=== PATIENT | female | born 1955 | race Caucasian/White ===

== ENCOUNTER 2016-05-06 13:23 | Emergency (ER) | payer MEDICARE, OTHER ==
[~2016-05-06] VITALS: Ht 162.6 cm; Wt 90.9 kg
[~2016-05-06 13:23] MED LIST: AMB10 PO; BANO TOP; CA C1TAB88 PO; CITRACEL PO; CMBV14.7IN IH; FEXO180T PO; LEVO125T50 PO; LOM PO; NEX40C PO; OXC10TCR PO; OXYC-176 PO; RANI-5 PO; SIN10 PO; TIZA4TABA PO; TOPR25T PO; TRIA TP; TRIA1CAP PO; [UNRECOGNIZED DRUG - CODE] PO
[2016-05-06 13:26] VITALS: BP 168/90; PULSE 96; RESP 28; O2SAT 100
[2016-05-06] MEDS ORDERED: Ketorolac 30 mg/mL 2 mL Inj ONE (14:01)
--- NOTE | 2016-05-06 14:10 | ED.REPORT ---
HPI-Abd Pain F 40 and Over Date of Service May 06, 2016 ED Provider: Timothy Tam MD 60 year old female presents to the ER accompanied by her son complaining of severe right flank pain onset in the middle of the night last night, awakening her from sleep. At onset patient treated with heating pad and returned to bed. Upon awakening at 06:00, she noted markedly worsening pain. She has since developed nausea, and vomiting. Associated symptoms include diarrhea onset yesterday, an episode of dark-colored urine yesterday, and rhinorrhea. Yesterday she used Zicam to treat cold symptoms. Patient denies history of kidney stones or similar, hematochezia, chest pain, SOB, and sore throat. Nursing Notes Stated Complaint: POSS KIDNEY PAIN Chief Complaint: Female Abdominal Pain Nursing Notes Reviewed: Yes Allergies: Coded Allergies: Calcitonin,[place],Synthetic (Verified Allergy, Unknown, 05/06/16) Cephalexin Monohydrate (Verified Allergy, Unknown, 05/06/16) NSAIDS (Non-Steroidal Anti-Inflamma (Verified Allergy, Unknown, 05/06/16) Sulfa (Sulfonamide Antibiotics) (Verified Allergy, Unknown, 05/06/16) TAPE (Verified Allergy, Unknown, 05/06/16) alendronate sodium (Verified Allergy, Unknown, 05/06/16) amoxicillin (Verified Allergy, Unknown, 05/06/16) ciprofloxacin (Verified Allergy, Unknown, 05/06/16) dicyclomine (Verified Allergy, Unknown, 05/06/16) erythromycin base (Verified Allergy, Unknown, 05/06/16) gatifloxacin (Verified Allergy, Unknown, 05/06/16) methadone (Verified Allergy, Unknown, 05/06/16) pseudoephedrine (Verified Allergy, Unknown, 05/06/16) raloxifene (Verified Allergy, Unknown, 05/06/16) valdecoxib (Verified Allergy, Unknown, 11/08/13) Uncoded Allergies: DONATAL (Allergy, Unknown, 11/08/13) LACTOSE INTOLERANT, CORN, PINAPPLE, NO RAW VEGTABLES (Allergy, Unknown, 07/01) METALS (Allergy, Unknown, 11/08/13) MULTIPLE SEE CHART PER OR (Allergy, Unknown, 07/02/03) Scheduled ([Citracel]) 2 PO DAILY Albut/Ipratropium-Expunged Drug, Do Not Renew (Combivent-Expunged Drug, Do Not Renew!) 1 Puff Inhaler 2 PUFFS IH QID 2 PUFFS Ca Carbonate/Vitamin D3/Vit K (Viactiv Soft Chew Tablet) 1 Each Tab.chew 500 MG PO DAILY Diphenoxylate/Atr-Expunged, Do Not Renew! (Diphenoxylate/Atr-Expunged, Do Not Renew!) 2.5 Mg Tablet 2.5 MG PO PRN Esomeprazole-Expunged Drug, Do Not Renew! (Esomeprazole-Expunged Drug, Do Not Renew!) 40 Mg Capsule.dr 40 MG PO BID Non-Formulary->Pantoprazole 40 MG Therapeutic Sub Fexofenadine-Expunged Drug, Do Not Renew! (Fexofenadine-Expunged Drug, Do Not Renew!) 180 Mg Tablet 180 MG PO PRN Levothyroxine (Levoxyl) 112 Mcg Tablet 112 MCG PO DAILY Metoprolol Suc-Expunged Drug, Do Not Renew! (Metoprolol Suc-Expunged Drug, Do Not Renew!) 25 Mg Tber 25 MG PO DAILY Minocycline Hcl-Expunged Drug, Do Not Renew! (Minocycline Hcl-Expunged Drug, Do Not Renew!) 135 Mg Tab.sr.24h 100 MG PO DAILY Montelukast-Expunged Drug, Do Not Renew! (Singulair-Expunged Drug, Do Not Renew! ) 10 Mg Tablet 10 MG PO HS For Allergy Management Mupirocin-Expunged Drug, Do Not Renew! (Bactroban-Expunged Drug, Do Not Renew!) 4 Applic/Gm Oint TOP PRN APPLY TO AFFECTED AREA Oxycodone/APAP-Expunged Drug, Do Not Renew! (Percocet 5/325-Expunged Drug, Do Not Renew!) 1 Each Tablet 1-2 TAB PO Q4HP Ranitidine Hcl-Expunged Drug, Do Not Renew! (Acid Control-Expunged Drug, Do Not Renew!) 150 Mg Tablet 300 MG PO BID Tizanidine-Expunged Drug, Do Not Renew! (Tizanidine-Expunged Drug, Do Not Renew! ) 4 Mg Tablet 4-8 MG PO Q6-8H Triamcinolone [place]-Expunged Drug, Do Not Renew (Triamcinolone [place]-Expunged Drug, Do Not Renew) 454 Gm Cr TP PRN Triamterene/HCTZ-Expunged Drug, Do Not Renew! (Triamterene/HCTZ 37.5/25-Expunged ,Do Not Renw) 1 Cap Capsule 1 CAP PO DAILY Miscellaneous Medications Zolpidem-Expunged Drug, Do Not Renew! (Zolpidem-Expunged Drug, Do Not Renew!) 10 Mg Tablet 10 MG PO oxyCODONE-Expunged, Do Not Renew! (OxyCONTIN-Expunged, Do Not Renew!) 10 Mg Tab.sr.12h 10 MG PO TAKE 10 MG BY MOUTH 6 TIMES DAILY General Time Seen by MD: 13:57 Chief Complaint Flank pain right Hx Obtained From: Patient, Son Arrived By: Ambulance Sudden in Onset?: Yes Onset Occurred: Yesterday Symptom Duration: Since onset Location: : Flank right Quality: Painful, Sharp Severity: Current: Moderate Severity: Maximum: Severe Associated with: Reports: Diarrhea, Fever, Nausea, Vomiting, Denies: Chest pain, Dysuria, Hematochezia, Hematuria Pertinent Negative: Pt denies other symptoms Similar Sx Previous: No Past Medical History Past Medical History Reports: Asthma Reports: Thyroid disease (Hypothyroidism) Smoking History Unknown if Ever Smoker Social History Other Social History: Good social support Review of Systems Constitutional: Reports: Fever (Subjective) Respiratory: Denies: Non-productive cough, Shortness of breath Cardiovascular: Denies: Chest pain GI: Reports: Diarrhea, Nausea, Vomiting, Denies: Abdominal pain, Hematemesis, Hematochezia Female: Reports: Flank pain (Right), Denies: Dysuria, Hematuria Musculoskeletal: Reports: Back pain Complete sys rev & neg: except as marked. Allergy / Immune: Reports: Rhinorrhea Physical Exam Vital Signs Vital Signs (First) Date Time Temp Pulse Resp B/P Pulse Ox O2 Delivery O2 Flow Rate FiO2 05/06/16 13:26 37.4 96 28 168/90 100 Room Air Initial VS: Reviewed Head / Eyes: Atraumatic, Normocephalic Neck: Supple, Non-tender, Full range of motion Extremities: Vascular intact, Neuro intact, No swelling, No tenderness Skin: Warm, Dry, No cyanosis Neurologic: Alert, Oriented, Nonfocal General/Constitutional: Awake, Alert, Well developed, Well nourished Appearance / Presentation: Positive: In pain, Uncomfortable Respiratory / Chest: Breath sounds NL, Breath sounds = bilat, No respiratory distress, No rales, No rhonchi, No wheezing, No stridor Cardiovascular: Heart rate NL, Regular rhythm, Heart sounds NL, Peripheral circulation NL Abdomen: Soft, Non-tender, No guarding, No rebound, No distention Back: Full range of motion, No midline vertebral tend Right CVA tenderness. Interpretation & Diagnostics Lab Results Interpretation Result Diagram: 05/06/16 1424 05/06/16 1424 Test 05/06/16 14:17 05/06/16 14:24 Urine Color Yellow (YELLOW) Urine Appearance Clear (CLEAR,HAZY) Urine pH 7.5 (5.0-8.0) Urine Specific [place] 1.015 (1.003-1.035) Urine Protein Negativemg/dL (NEG,TRACE) Urine Glucose (UA) Negativemg/dL (NEGATIVE) Urine Ketones Negativemg/dL (NEGATIVE) Urine Occult Blood Negative (NEGATIVE) Urine Nitrite Negative (NEGATIVE) Urine Bilirubin Negative (NEGATIVE) Urine Urobilinogen Normalmg/dL (NORMAL) Urine Leukocyte Esterase Negative (NEGATIVE) Urine RBC 0-2/hpf (0-2) Urine WBC 0-5/hpf (0-5) Urine Epithelial Cells Occasional/hpf (NONE-MOD) Urine Crystals None seen (NONE SEEN) Urine Bacteria None/hpf (NONE-FEW) Urine Hyaline Casts None/lpf (NONE) Urine Granular Casts None seen (NONE SEEN) Urine Waxy Casts None seen (NONE SEEN) Urine Red Blood Cell Casts None seen (NONE SEEN) Urine White Blood Cell Casts None seen (NONE SEEN) Urine Mucus None seen (None Seen) Urine Trichomonas None seen (NONE SEEN) Urine Yeast None (NONE SEEN) Urinalysis Comment None Urine Culture Reflexed Not indicated White Blood Count 10.5th/mm3 (3.8-10.1) Red Blood Count 4.79mil/mm3 (3.90-5.20) Hemoglobin 14.3g/dL (12.0-15.6) Hematocrit 42.9% (35.0-46.0) Mean Corpuscular Volume 89.6fL (81-100) Mean Corpuscular Hemoglobin 29.9pg (27.0-35.0) Mean Corpuscular Hemoglobin Concent 33.3% (32.0-37.0) Red Cell Distribution Width 13.8% (12.3-15.4) Platelet Count 261bil/L (150-400) Neutrophils (%) (Auto) 86.1% (40-74) Lymphocytes (%) (Auto) 6.5% (14-46) Monocytes (%) (Auto) 6.7% (4-12) Eosinophils (%) (Auto) 0.4% (0-5) Basophils (%) (Auto) 0.1% (0-3) Sodium Level 139mEq/L (134-144) Potassium Level 3.6mEq/L (3.5-5.2) Chloride Level 99mEq/L (97-108) Carbon Dioxide Level 20mmol/L (18-29) Blood Urea Nitrogen 16mg/dL (6-24) Creatinine 0.58mg/dL (0.57-1.00) Estimat Glomerular Filtration Rate 152mL/min (>59) Glucose Level 102mg/dL (60-99) Calcium Level 8.9mg/dL (8.5-10.1) Magnesium Level 2.2mg/dL (1.6-2.6) Total Bilirubin 1.5mg/dL (0.0-1.2) Aspartate Amino Transf (AST/SGOT) 443U/L (0-50) Alanine Aminotransferase (ALT/SGPT) 451U/L (0-32) Alkaline Phosphatase 173U/L (25-165) Total Protein 7.0g/dL (6.4-8.4) Albumin 4.5g/dL (3.4-5.0) Lipase 32U/L (13-60) ECG Interpretation ECG Interpretation: Sinus rhythm, rate [address] T changes Time: 14:35 Interpreted by: ED physician CT Abd / Pelvis Interpretation IMPRESSION: 1. No evidence of urinary tract calcification, nor extraction. 2. Appendix not seen. No evidence of appendicitis. Dictated by: Michael Yeboah M.D. on 05/06/2016 at 15:03 Approved by: Michael Yeboah M.D. on 05/06/2016 at 15:05 Study type: Abdominal CT no contrast Interpretation / Wet Read by: Interpret - Radiologist Re-Eval/Medical Decision Med Decision/Clinical Course 60-year-old female presenting with right flank pain since last night. She has no history of kidney stones. No fevers no urinary symptoms. Her urine is negative for infection or blood. LFTs are elevated. Bili 1.5. CT KUB no acute pathology. Right upper quadrant ultrasound is pending. Patient be signed out to Dr. Walters pending US. Source of Hx: Old records Discharge & Departure Shift Change Sign-Out Patient Care Transferred: Yes Discussed Complaint(s): Yes Imaging Studies: Imaging discussed Primary Impression: Right upper quadrant abdominal pain Discharge Condition All VS Reviewed: Yes Referrals: Rafaela Meade MD (PCP) Care Transferred to: Dr. Walters Care Transferred at: 15:51 Scribe Attestation Portions of this note were transcribed by Yaakov Roy. I, Dr. Tam, personally performed the history, physical exam and medical decision-making; I reviewed and confirmed the accuracy of the information in the transcribed note. Signed by: Carol Ann Schultz, 05/06/2016 - 15:51 copies to: Rafaela Meade MD, Ben M MD May 06, 2016 14:10 YAAKOV ROY May 06, 2016 14:17
[2016-05-06] MEDS ORDERED: LEVO112T23 PO (14:16)
[2016-05-06] MEDS ORDERED: 0.9% Sodium Chloride 1,000 ML IV ONE (14:17)
[2016-05-06 14:30] LABS: BASOPHILS % (AUTO) 0.1 % (0-3); EOSINOPHILS % (AUTO) 0.4 % (0-5); MONOCYTES % (AUTO) 6.7 % (4-12); Mean Corpuscular Hemoglobin 29.9 pg (27.0-35.0); Mean Corpuscular Volume 89.6 fL (81-100); NEUTROPHILS % (AUTO) 86.1 % (40-74); Platelet Count 261 bil/L (150-400)
[2016-05-06] MEDS: Ondansetron 2 mg/mL 2 mL Inj IVPUSH PRN ×2 (14:42→15:24)
[2016-05-06 14:50] LABS: APPEARANCE,URINE CLEAR (CLEAR,HAZY); COLOR,URINE YELLOW (YELLOW); OCCULT BLOOD,URINE NEGATIVE (NEGATIVE); PH,URINE 7.5 (5.0-8.0); UROBILINOGEN,URINE NORMAL (NORMAL)
[2016-05-06 14:54] LABS: Magnesium 2.2 mg/dL (1.6-2.6)
--- NOTE | 2016-05-06 15:06 | DRSVH ---
PROCEDURE: CT KUB ([id number]) INDICATIONS: R flank pain TECHNIQUE: Noncontrast 5 mm thick sections acquired from the diaphragms to the symphysis. 5 mm thick coronal an d sagittal reformats were then performed. For radiation dose reduction, the following was used: aut omated exposure control, adjustment of mA and/or kV according to patient size. COMPARISON: [facility], CT, CHEST ANGIO-PE, 03/29/2013, 23:28. FINDINGS: Image quality: Excellent. Lung bases: Bilateral anterior lung base scarring is present, as before. Heart size is normal. Urinary system: Both kidneys are normal in size. No kidney stones. No hydronephrosis or perinephri c fat stranding. Both ureters appear non-dilated throughout their expected courses. Bladder wall th ickness is normal; no calcified bladder stones. Other solid organs: Liver and spleen are normal in size. No change in 6 mm low-density focus within the lateral segment left hepatic lobe superiorly. Gallbladder is within normal limits on noncontrast imaging. Pancreas is normal in contours. No adrenal nodules. Peritoneum and bowel: Unenhanced bowel loops demonstrate normal wall thickness and caliber. No free fluid or air. Appendix not seen. Nodes and vessels: No retroperitoneal or mesenteric adenopathy by size criteria. Aorta and inferior vena cava are normal in caliber. Abdominal wall: No ventral hernias. Pelvis: No free pelvic fluid. No inguinal hernias or adenopathy. Bones: No suspicious bony lesions. No vertebral body compression fractures. IMPRESSION: 1. No evidence of urinary tract calcification, nor extraction. 2. Appendix not seen. No evidence of appendicitis. Dictated by: Michael Yeboah M.D. on 05/06/2016 at 15:03 Approved by: Michael Yeboah M.D. on 05/06/2016 at 15:05
--- NOTE | 2016-05-06 16:55 | DRSVH ---
PROCEDURE: US ABDOMEN, LIMITED ([id number]) INDICATIONS: RUQ pain gallbladder TECHNIQUE: Real-time focused scanning was performed of the abdomen, with image documentation. COMPARISON: None. FINDINGS: Multiple gallstones present and no evidence of cholecystitis is seen. No biliary dilatatio n. IMPRESSION: Cholelithiasis. Dictated by: Luís Buenrostro RRHeike Interpreted: Gilda Stiles MD on 05/06/2016 at 16:54 Transcribed by: BIRGIT on 05/06/2016 at 16:54 Approved by: Gilda Stiles MD, PhD on 05/06/2016 at 17:03
[2016-05-06 17:17] VITALS: BP 143/88; PULSE 87; RESP 16; O2SAT 100
[2016-05-06 18:07] VITALS: BP 138/89; PULSE 85; O2SAT 99
[2016-05-06] MEDS ORDERED: HYDR-4003 PO (18:14)
[2016-05-07] MEDS ORDERED: ZOLP10TA5 PO (17:37)
[2016-05-07] MEDS ORDERED: OXYC-466 PO (17:37)
[2016-05-07] MEDS ORDERED: METO25TA6 PO ×2 (17:37)
[2016-05-07] MEDS ORDERED: ESOM40CA41 PO (17:37)
[2016-05-07] MEDS ORDERED: OXYC10TA69 PO (17:37)
[2016-05-07] MEDS ORDERED: ALBU0.63 INHALATION (17:37)
[2016-05-07] MEDS ORDERED: HYDR25TA4 PO (17:37)
[2016-05-07] MEDS ORDERED: RANI300T4 PO (17:37)
[2016-05-07] MEDS ORDERED: DIPH1TAB PO (17:37)
[2016-05-07] MEDS ORDERED: TRIA1CAP5 PO (17:37)
[2016-05-07] MEDS ORDERED: CALC-682 PO (17:37)
[2016-05-07] MEDS ORDERED: MINO100C3 PO (17:37)
[2016-05-07] MEDS ORDERED: LEVO112T23 PO (17:37)
[2016-05-07] MEDS ORDERED: TRIIODO-L-THYRONINE PO (17:37)
[2016-05-07] MEDS ORDERED: FEXO180T85 PO (17:37)
[2016-05-07] MEDS ORDERED: TIZA4TAB4 PO (17:37)
[2016-05-07] MEDS ORDERED: MONT10TA20 PO (17:37)
== END 2016-05-06 18:11 ==
LOC: SED 13:23
DX: K80.00 Calculus of gallbladder with acute cholecystitis without obstruction (principal); I10 Essential (primary) hypertension; J45.909 Unspecified asthma, uncomplicated; E03.9 Hypothyroidism, unspecified; J44.9 Chronic obstructive pulmonary disease, unspecified; Z88.8 Allergy status to other drugs, medicaments and biological substances; Z88.1 Allergy status to other antibiotic agents; Z88.6 Allergy status to analgesic agent; Z88.2 Allergy status to sulfonamides; Z88.0 Allergy status to penicillin; Z88.5 Allergy status to narcotic agent
CPT/HCPCS: 36415; 74176; 76705; 80053; 81000; 83690; 83735; 85025; 93005; 96361; 96372; 96374; 96375; 96376; 99285; J1885; J2270; J2405; J7030

== ENCOUNTER 2016-05-07 16:56 | Day surgery (SDC) | payer MEDICARE, OTHER ==
[2016-05-07] VITALS (11 sets, daily range): BP systolic 134–179; BP diastolic 75–99; PULSE 82–128; RESP 13–24; O2SAT 95–100
[~2016-05-07] VITALS: Ht 162.6 cm; Wt 93.0 kg
[~2016-05-07 16:56] MED LIST changes: +HYDR-4003 PO; +LEVO112T23 PO; -LEVO125T50 PO
[2016-05-07] MEDS ORDERED: Neostigmine 1 mg/mL 10 mL Inj ONE (16:57)
[2016-05-07] MEDS ORDERED: Lidocaine PF 1% 30 mL Inj ONE (16:57)
[2016-05-07] MEDS ORDERED: fentaNYL-PF 50 mCg/mL 2 mL Inj ONE (16:57)
[2016-05-07] MEDS ORDERED: Labetalol 5 mg/mL 20 mL Inj ONE (16:57)
[2016-05-07] MEDS ORDERED: Propofol 10,000 mCg/mL 20 mL Inj ONE (16:57)
[2016-05-07] MEDS ORDERED: Dexamethasone 4 mg/mL Inj ONE (16:57)
[2016-05-07] MEDS ORDERED: MetoCLOpramide 5 mg/mL 2 mL Inj ONE (16:57)
[2016-05-07] MEDS ORDERED: Rocuronium 10 mg/mL 5 mL Inj ONE (16:57)
[2016-05-07] MEDS ORDERED: Ondansetron 2 mg/mL 2 mL Inj ONE (16:57)
[2016-05-07] MEDS ORDERED: Lactated Ringer's 1,000 ML IV ONE (17:05)
[2016-05-07] MEDS ORDERED: Clindamycin Inj 900 MG in IV Premix 1 EACH IV ONE (17:20)
[2016-05-07] MEDS ORDERED: Clindamycin 900 mg/50 mL D5W Premix IV ONE (17:24)
[2016-05-07] MEDS ORDERED: METO25TA6 PO ×2 (17:37)
[2016-05-07] MEDS ORDERED: HYDR25TA4 PO (17:37)
[2016-05-07] MEDS ORDERED: ALBU0.63 INHALATION (17:37)
[2016-05-07] MEDS ORDERED: MONT10TA20 PO (17:37)
[2016-05-07] MEDS ORDERED: TRIIODO-L-THYRONINE PO (17:37)
[2016-05-07] MEDS ORDERED: FEXO180T85 PO (17:37)
[2016-05-07] MEDS ORDERED: TIZA4TAB4 PO (17:37)
[2016-05-07] MEDS ORDERED: RANI300T4 PO (17:37)
[2016-05-07] MEDS ORDERED: DIPH1TAB PO (17:37)
[2016-05-07] MEDS ORDERED: OXYC-466 PO (17:37)
[2016-05-07] MEDS ORDERED: ZOLP10TA5 PO (17:37)
[2016-05-07] MEDS ORDERED: ESOM40CA41 PO (17:37)
[2016-05-07] MEDS ORDERED: LEVO112T23 PO (17:37)
[2016-05-07] MEDS ORDERED: MINO100C3 PO (17:37)
[2016-05-07] MEDS ORDERED: CALC-682 PO (17:37)
[2016-05-07] MEDS ORDERED: OXYC10TA69 PO (17:37)
[2016-05-07] MEDS ORDERED: TRIA1CAP5 PO (17:37)
--- NOTE | 2016-05-07 17:41 | PCM.HPANE ---
Patient Data Surgeon Admitting Provider: Attending Provider:Tan Alejandro MD Primary Care Physician:Rafaela Meade MD Other Provider:Eli Morales Anesthesia Reason for Visit Gallbladder Pain Ht/WT & BMI Weight (Kilograms): 98 Body Mass Index 34 Allergies Coded Allergies: Calcitonin,[place],Synthetic (Verified Allergy, Unknown, 05/06/16) Cephalexin Monohydrate (Verified Allergy, Unknown, 05/06/16) NSAIDS (Non-Steroidal Anti-Inflamma (Verified Allergy, Unknown, 05/06/16) Sulfa (Sulfonamide Antibiotics) (Verified Allergy, Unknown, 05/06/16) TAPE (Verified Allergy, Unknown, 05/06/16) alendronate sodium (Verified Allergy, Unknown, 05/06/16) amoxicillin (Verified Allergy, Unknown, 05/06/16) ciprofloxacin (Verified Allergy, Unknown, 05/06/16) dicyclomine (Verified Allergy, Unknown, 05/06/16) erythromycin base (Verified Allergy, Unknown, 05/06/16) gatifloxacin (Verified Allergy, Unknown, 05/06/16) methadone (Verified Allergy, Unknown, 05/06/16) pseudoephedrine (Verified Allergy, Unknown, 05/06/16) raloxifene (Verified Allergy, Unknown, 05/06/16) valdecoxib (Verified Allergy, Unknown, 11/08/13) Uncoded Allergies: DONATAL (Allergy, Unknown, 11/08/13) LACTOSE INTOLERANT, CORN, PINAPPLE, NO RAW VEGTABLES (Allergy, Unknown, 07/01) METALS (Allergy, Unknown, 11/08/13) MULTIPLE SEE CHART PER OR (Allergy, Unknown, 07/02/03) Past Anesthesia History Anesthesia History: Denies:: Anesthesia Reactions Diabetes History Hx Diabetes?: No MRSA MRSA: No Medications Hypertension Medication: No Home Meds Incl Beta Naomi: Yes (METOPROLOL) Date Beta Naomi Taken: May 07, 2016 Time Beta Naomi Taken: 0600 Reported Medications Montelukast (Singulair)10 Mg Iphvqx61 Mg PO HS Ref 0 05/07/16 Fexofenadine (Maria Eugenia Allergy)180 Mg Sxuyqp641 Mg PO DAILY PRN ALLERGIES Ref 0 05/07/16 Metoprolol Tartrate 25 Mg Efghbi28 Mg PO MORNING 30 Days Ref 0 05/07/16 Metoprolol Tartrate 25 Mg Mkpcey47.5 Mg PO HS 30 Days Ref 0 05/07/16 [Gztjlxw-W-Plkylrodn] No Conflict Check5 Mcg PO DAILY 05/07/16 Tizanidine 4 Mg Tablet4 Mg PO TID 05/07/16 Albuterol Neb Soln 0.63 Mg/3 Ml Vial.nebUnknown Dose INHALATION Q4H PRN For Wheezing Ref 0 05/07/16 Zolpidem 10 Mg Tuqgip51 Mg PO HS PRN For Insomnia Ref 0 05/07/16 oxyCODONE-Acetaminophen 10-325 mg 1 Each Tablet2 Tablet PO Q4H PRN For Pain Ref 0 05/07/16 Oxycodone ER (Oxycontin)10 Mg Tab.er.12h10 Mg PO 5XD PRN For Pain 05/07/16 Triamterene/HCTZ 37.5-25 mg 1 Each Capsule1 Capsule PO DAILY Ref 0 05/07/16 Diphenoxylate/Atropine 2.5-0.025 mg (Lomotil 2.5-0.025 mg)1 Each Tablet1 Tablet PO DAILY PRN For Diarrhea or Loose Stool 05/07/16 Calcium Crb&Cit/D3/Min34/Elsa (Citracal + Bone Density Tablet)1 Each Tablet1 Each PO 05/07/16 Minocycline 100 Mg Rxetzwq444 Mg PO DAILY Ref 0 05/07/16 Levothyroxine (Levoxyl)112 Mcg Cosixz727 Mcg PO DAILY Ref 0 05/07/16 Esomeprazole Magnesium (Nexium)40 Mg Capsule.dr40 Mg PO BID Ref 0 05/07/16 Ranitidine 300 Mg Vyvurf880 Mg PO BID Ref 0 05/07/16 Discontinued Reported Medications Hydrochlorothiazide 25 Mg Nbpwoe03 Mg PO DAILY 30 Days Ref 0 05/07/16 Levothyroxine (Levoxyl)112 Mcg Kbognd597 Mcg PO DAILY Ref 0 05/06/16 Montelukast-Expunged Drug, Do Not Renew! (Singulair-Expunged Drug, Do Not Renew! )10 Mg Qqdnmc52 Mg PO HS #30 TAB Ref 0 For Allergy Management 03/29/13 Triamcinolone [place]-Expunged Drug, Do Not Renew 454 Gm Cr Tp Prn 03/29/13 Mupirocin-Expunged Drug, Do Not Renew! (Bactroban-Expunged Drug, Do Not Renew!) 4 Applic/Gm Oint TOP PRN #22 GM Ref 0 APPLY TO AFFECTED AREA 03/29/13 Triamterene/HCTZ-Expunged Drug, Do Not Renew! (Triamterene/HCTZ 37.5/25-Expunged ,Do Not Renw)1 Cap Capsule1 Cap PO DAILY Ref 0 03/29/13 Ca Carbonate/Vitamin D3/Vit K (Viactiv Soft Chew Tablet)1 Each Tab.wyqz815 Mg PO DAILY 03/29/13 [Citracel] No Conflict Check2 Po Daily 03/29/13 Diphenoxylate/Atr-Expunged, Do Not Renew! 2.5 Mg Tablet2.5 Mg PO PRN 03/29/13 Fexofenadine-Expunged Drug, Do Not Renew! 180 Mg Anxmeg315 Mg PO PRN 05/27/12 Metoprolol Suc-Expunged Drug, Do Not Renew! 25 Mg Tber25 Mg PO DAILY #30 TAB 05/27/12 Tizanidine-Expunged Drug, Do Not Renew! 4 Mg Tablet4-8 Mg PO Q6-8H 05/27/12 Albut/Ipratropium-Expunged Drug, Do Not Renew (Combivent-Expunged Drug, Do Not Renew!)1 Puff Inhaler2 Puffs IH QID #1 MDI 2 PUFFS 05/27/12 Oxycodone/APAP-Expunged Drug, Do Not Renew! (Percocet 5/325-Expunged Drug, Do Not Renew!)1 Each Tablet1-2 Tab PO Q4HP 05/27/12 Zolpidem-Expunged Drug, Do Not Renew! 10 Mg Tznptc15 Mg PO 05/27/12 oxyCODONE-Expunged, Do Not Renew! (OxyCONTIN-Expunged, Do Not Renew!)10 Mg Tab.sr.12h10 Mg PO #20 TAB TAKE 10 MG BY MOUTH 6 TIMES DAILY 05/27/12 Minocycline Hcl-Expunged Drug, Do Not Renew! 135 Mg Tab.sr.08i144 Mg PO DAILY 05/27/12 Esomeprazole-Expunged Drug, Do Not Renew! 40 Mg Capsule.dr40 Mg PO BID #60 CAP Non-Formulary->Pantoprazole 40 MG Therapeutic Sub 05/27/12 Ranitidine Hcl-Expunged Drug, Do Not Renew! (Acid Control-Expunged Drug, Do Not Renew!)150 Mg Sdhjkt074 Mg PO BID 05/27/12 Levothyroxine-Expunged Drug, Do Not Renew! (Levoxyl-Expunged Drug, Do Not Renew! )125 Mcg Jdfuzi433 Mcg PO DAILY 05/27/12 Discontinued Scripts Hydrocodone-Acetaminophen 5-325 mg 1 Each Tablet1 Tablet PO Q4H PRN For Pain # 20 TABLET Prov:Darrell Walters MD 05/06/16 History History of ENT Problems?: Yes HEENT History: Positive for:: Sinus Problem (CHRONIC SINUS INFECTION OVER LAST MONTH ) Hx of Heart Problems?: No Cardiovascular History: Positive for:: Chest Pain (HEAVYNESS/PRESSURE) Edema Hypertension Denies:: Congestive Heart Failure Heart Murmur Irregular Heartbeat Pacemaker Thrombophlebitis Hx of Respiratory Problem?: Yes Respiratory History: Positive for:: Asthma Dyspnea Denies:: COPD Chest Surgery Emphysema Hemoptysis Pneumonia Tuberculosis Hx Neurologic Problems?: No Hx of GI Problems?: Yes Gastrointestinal History: Positive for:: Gall Bladder Disease Heartburn Hx of Problems?: No Female Hx: Denies:: Problems with Breasts? Hx Musculoskeletal Problems?: Yes Musculoskeletal History: Denies:: Back Injury Hx of Psycho/Social Problems?: No Psycho Social History: Positive for:: Suicide Attempt Hx Surgeries?: Yes (LT AKA,HYSTERECTOMY,APPY,TONSILS,LT KNEE,) Other History: Positive for:: Cancer (SKIN CA) Hospitalization (AKA) Denies:: Thyroid Disease History Blood Transfusions: Denies:: Blood Transfuse Reaction Blood Transfusions Hx Diabetes: No Hx Alcohol Use: Yes (OCCAS)Hx Substance Use: No Smoking Status: Unknown if Ever Smoker Have You Smoked inLast 12 mo: No Stop/Bang Treated for Sleep Apnea?: Yes Do You Have a CPAP Machine?: Yes ANGELINE Risk Assessment: High Risk, =/>3 Yes ANGELINE Category 2: Yes Risk Assessment Category Category 1A: Patient has history of documented sleep apnea, and HAS NOT received any narcotic, sedative or anesthesia administration during this stay. Category 1B: Patient has history of documented sleep apnea, and HAS received any narcotic , sedative or anesthesia administration during this stay Category 2: Patient has SUSPECTED Obstructive Sleep Apnea, and HAS received any narcotic , sedative or anesthesia administration during this stay. Category 3: Patient has SUSPECTED Obstructive Sleep Apnea and HAS NOT received narcotic, sedative or anesthesia administration during this stay. Category 4: Outpatient in Procedural Areas with known sleep apnea or who screen positive for High Risk via the STOP/BANG questionnaire. Exam Exam Vital Signs Vital Signs Date Time Temp Pulse Resp B/P Pulse Ox O2 Delivery O2 Flow Rate FiO2 05/07/16 17:12 36.3 128 24 179/97 100 Room Air General Appearance: Alert, Oriented X3, Cooperative HEENT/AIRWAY: MP 2, Neck Movement (Full), Other (Upper dentures) Lungs: Clear to Auscultation, Normal Air Movement Heart: Normal S1, Normal S2 Meds/Labs/Diagnostics Labs Elevated LFTs Plan Impression Patient chart reviewed, patient interviewed and anesthestic plan with risks, benefits, and alternatives discussed, and informed consent obtained. NPO Status: 05/07/16 1430 ASA Physical Status: ASA3 Severe Disease (chronic pain on opioids, phantom limb pain) Anesthetic Plan: GA Bene/Risks/Altern/Consents: Yes HP Complete Prior to Induction: Yes Denys Monreal MD May 07, 2016 17:41
[2016-05-07] MEDS ORDERED: Lactated Ringer's 1,000 ML IV SCH (18:03)
[2016-05-07] MEDS ORDERED: Lactated Ringer's 500 ML IV PRN (18:03)
[2016-05-07] MEDS ORDERED: Labetalol 5 mg/mL 4 mL Inj IV PRN (18:05)
[2016-05-07] MEDS ORDERED: Dexamethasone 4 mg/mL Inj IVPUSH PRN (18:05)
[2016-05-07] MEDS ORDERED: MetoCLOpramide 5 mg/mL 2 mL Inj IVPUSH PRN (18:05)
[2016-05-07] MEDS ORDERED: Ondansetron 2 mg/mL 2 mL Inj IVPUSH PRN (18:05)
[2016-05-07] MEDS ORDERED: hydrALAZINE 20 mg/mL Inj IVPUSH PRN (18:05)
[2016-05-07] MEDS ORDERED: Bupivacaine-MPF 0.5% 30 mL Inj INFILTRATE ONE (18:06)
--- NOTE | 2016-05-07 19:03 | HP ---
[address] [address] HISTORY AND PHYSICAL PATIENT: ANDREINA LINDSEY : 1955 MR#: [id number] ADMIT: 05/07/2016 JOB ID: [id number] HISTORY OF PRESENT ILLNESS: A 60-year-old female. She was in the emergency department room last night. This is her 3rd day of right upper quadrant pain going into her back. The pain has persisted. Last night in the emergency department an ultrasound demonstrated gallstones without signs of cholecystitis but she did have elevated liver function tests. She was seen this afternoon by Dr. Pola Brady in our office. He noted persisting pain and right upper quadrant tenderness. He asked me, since I was on-call, to see her and I have arranged for a cholecystectomy. She has had a previous hysterectomy, appendectomy, lysis of adhesions, and exploration for endometriosis. 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 She has not smoked for many many years. She is on chronic OxyContin because of phantom limb pain and back pain. ALLERGIES: She has numerous allergies including to CEPHALOSPORINS but she is able to take clindamycin. PHYSICAL EXAMINATION: She is alert, but overnourished. BMI approximately 35. No distress. Temperature 36.3, brachial blood pressure 179/97, pulse 128, respiratory rate 24, O2 sat room air 100%. HEENT: Nonjaundiced. Neck: No masses. Lungs: Clear. Cardiac: Regular rhythm. Abdomen: Pfannenstiel incision. A right upper quadrant tenderness with positive Castillo sign. Extremities: Status post left AKA. Skin: Nonjaundiced. No abdominal rashes. Neurologic: Appropriate affect. No obvious cranial nerve deficits. Moves all extremities. IMPRESSION: 1. Acute calculous cholecystitis. 2. Possible choledocholithiasis. PLAN: I discussed options with the patient, and I agree with Dr. Brady. She is best served with proceeding to the operating room tonight for a laparoscopic cholecystectomy, possible open cholecystectomy, and cholangiograms. I discussed the operation and risks which include, but are not limited to, bleeding, bile leak, bile ductal injury, and postoperative diarrhea. She agrees to proceed. I anticipate she will spend the night in the hospital. She is aware that if I cannot do cholangiograms and her liver function tests remain elevated, she will need an MRCP. The patient is seen for decision to operate.
[2016-05-07] MEDS ORDERED: DiphenOXYlate-Atropine 2.5 mg-0.025 mg Tablet PO PRN (19:10)
[2016-05-07] MEDS ORDERED: HYDROmorphone 1 mg/mL Inj IVPUSH PRN (19:15)
[2016-05-07] MEDS: fentaNYL-PF 50 mCg/mL 2 mL Inj IVPUSH PRN ×3 (19:24→19:35)
--- NOTE | 2016-05-07 19:28 | PCM.ANEP1 ---
Post Anesthesia Phase 1 PACU Phase 1 Assessment Date of Service: May 07, 2016 Vital Signs Vital Signs Date Time Temp Pulse Resp B/P Pulse Ox O2 Delivery O2 Flow Rate FiO2 05/07/16 19:17 36.2 86 13 160/96 100 Simple Mask 8 05/07/16 17:12 36.3 128 24 179/97 100 Room Air Anesthetic Administered: GA Level of Alertness: Sleepy, easy to arouse SCHRADER's with Equal Strength: Yes Pain: No Nausea or Vomiting: No Oxygen Delivery: Simple Mask Lungs: Normal Air Movement Denys Monreal MD May 07, 2016 19:28
--- NOTE | 2016-05-07 19:30 | PCM.ANEP2 ---
Post Anesthesia Evaluation ASA/CMS Post Anesthesia Date of Service: May 07, 2016 VS in Patient's Normal Range?: Yes Resp Stable; Airway Patent?: Yes CV Function & Hydration Stable: Yes Mental Status Recovered?: Yes Pain control Satisfactory?: No (chronic pain at baseline) N/V Control Satisfactory?: Yes Denys Monreal MD May 07, 2016 19:30
[2016-05-07] MEDS: HYDROmorphone 1 mg/mL Inj IVPUSH PRN ×4 (19:35→21:29)
--- NOTE | 2016-05-07 20:03 | DRSVH ---
PROCEDURE: X-RAY OPERATIVE CHOLANGIOGRAM ([id number]) INDICATIONS: CHOLANGIOGRAM COMPARISON: None. FINDINGS: Biliary ducts: The surgeon injected contrast into the biliary ducts after cannulation of the cystic duct stump. Visualized intra- and extrahepatic bile ducts are normal in caliber, without strictures. No intraluminal filling defects to suggest retained ductal stones or sludge. No evidence for iatro genic ductal injury. Duodenum: Contrast flows promptly through the sphincter of Oddi into the duodenum, which appears nor mal in caliber. IMPRESSION: Normal intraoperative cholangiogram. Dictated by: Stephanie Harvey M.D. on 05/07/2016 at 20:00 Approved by: Stephanie Harvey M.D. on 05/07/2016 at 20:01
--- NOTE | 2016-05-07 21:58 | OP ---
[address] [address] OPERATIVE REPORT PATIENT: ANDREINA LINDSEY : 1955 MR#: [id number] ADMIT: 05/07/2016 JOB ID: [id number] DATE OF SURGERY: 05/07/2016 PREOPERATIVE DIAGNOSIS(ES): Acute calculous cholecystitis. POSTOPERATIVE DIAGNOSIS(ES): Acute calculous cholecystitis. PROCEDURE: Laparoscopic cholecystectomy and cholangiograms. SURGEON: Tan Alejandro MD. ASSURANCE ANALYST: Reuben Soria PA-C. INDICATIONS: The patient is a 60-year-old female with a three-day history of right upper quadrant pain radiating into her back. Yesterday, she presented to the emergency department. An ultrasound demonstrated gallstones but no evidence of acute cholecystitis, but she did have elevated liver function tests with an AST of 443, an ALT at 451, and an alkaline phosphatase of 173. Her lipase was 32. Her bilirubin was 1.5. She had persisting pain and was seen this afternoon by Dr. Lenard Brady in his office and he noted right upper quadrant tenderness. As I was media relations intern, I also saw the patient and agreed that she should have an emergent cholecystectomy. After discussing options with the patient, informed consent was obtained and she agreed to proceed. FINDINGS: She had a distended gallbladder but the gallbladder was not edematous. There was no pericholecystic fluid. Cholangiogram showed no filling defects. No evidence of bile ductal injury, and contrast into the intrahepatic ducts and into the duodenum. PROCEDURE: At the beginning and end of the operation, the SCOAP checklist was completed. A general endotracheal anesthetic was induced by Dr. Luís Monreal. She received preoperative antibiotics. She had on pneumatic hose. She has had a previous AKA. She was prepped and draped in the usual fashion. She received local anesthesia with 0.5% plain bupivacaine. An infraumbilical incision was made. The abdominal cavity was entered. A cannula inserted. The abdomen insufflated with CO2. Accessory 5 mm ports were placed in the upper midline and two in the right upper quadrant. The gallbladder fundus was elevated. The cystic artery could be identified coursing up the anterior wall of the gallbladder. It was exposed and divided between two clips proximally and one distally. This allowed dissection of the triangle of Calot and clear identification of the cystic duct. After exposing the cystic duct, a clip was placed at the junction of the gallbladder and the cystic duct. Cholangiograms were obtained with results as stated above. The cholangiocatheter was removed. Two clips placed proximally on the cystic duct, which was then divided. The gallbladder was dissected away from the liver and placed into a specimen bag. The subhepatic space and subphrenic spaces were irrigated with saline and aspirated. There was no evidence of bleeding or bile leak. The specimen bag was removed through the umbilical port. All trocars were removed without evidence of bleeding. The umbilical fascial incision was closed with running 0 Vicryl. Skin with subcuticular 4-0 Vicryl. Steri-Strips, sterile dressings were applied. Estimated blood loss 10 cc. No apparent complications. The final sponge, needle, and instrument counts were announced as correct and the patient was returned to recovery room in stable condition. Critical assistance was provided by Reuben Soria PA-C.
[2016-05-07] MEDS: oxyCODONE ER 10 mg ER12 Tablet PO PRN (22:10)
[2016-05-07] MEDS: Pantoprazole 40 mg ER24 Tablet PO SCH (23:45)
[2016-05-08] MEDS: Dextrose 5% Lactated Ringer's 1,000 ML IV SCH ×2 (00:30→07:42)
[2016-05-08 00:55] VITALS: BP 132/80; PULSE 112; RESP 20; O2SAT 96
[2016-05-08] MEDS: oxyCODONE ER 10 mg ER12 Tablet PO PRN ×2 (04:31→09:20)
[2016-05-08] MEDS: oxyCODONE-Acetamin 10-325 mg Tablet PO PRN ×2 (04:32→08:07)
[2016-05-08 05:21] VITALS: BP 145/94; PULSE 109; RESP 16; O2SAT 100
[2016-05-08] MEDS: Pantoprazole 40 mg ER24 Tablet PO SCH (06:40)
--- NOTE | 2016-05-08 07:05 | NUR ---
PostOp Arrived to 1022 from PACU via stretcher. Able to transfer self into bed. IV SL. RA w/o c/o SOB. Denies CP or discomfort. c/o generalized pain 10/07. Prn Dilaudid administered and effective. Tolerating water without n/v. SBA BSC and voiding without any issues. Personal belongings at bedside per patient request. Oriented to call light use with return demonstration. Currently resting without any complaints.
[2016-05-08] MEDS ORDERED: [UNRECOGNIZED DRUG - OTHER] PO SCH (08:30)
--- NOTE | 2016-05-08 09:00 | NUR ---
Plan for Discharge Dr. King at bedside, he stated patient can have a general diet and if she tolerates eating she is able to be discharged.
--- NOTE | 2016-05-08 09:26 | PCM.DISURG ---
Surgical Discharge Instruction Date of Service May 08, 2016 Dates of Hospitalization Date of Hospital Admission Providers Admitting Physician: Primary Care Physician: Rafaela Meade MD Attending Physician: Tan Alejandro MD Discharge Diagnosis Discharge Diagnosis Cholelithiasis Diet Discharge Diet: No restrictions Activity Discharge Activity-General: Be up and about Dressing and Incisional Care Dressing Care: Remove outer dressing after 24 hrs Hygiene: May shower Follow Up Plan Mid-level Provider (F9): Nia Verma PAC Follow-up appointment: Weeks (3) Asha King MD May 08, 2016 09:26
[2016-05-08 09:29] VITALS: BP 138/89; PULSE 99; RESP 16; O2SAT 99
--- NOTE | 2016-05-08 10:51 | NUR ---
Social Work Note: Initial Assessment/Discharge Data& Assessment: EMR reviewed. Per MD pt is medically ready for discharge. BERKLEY met with pt at bedside to confirm discharge plan and assess for any unmet needs. Perri Friend is a 60 year old female hospitalized for gallbladder pain. Pt had gallbladder removal. Pt has Medicare and [employer] out of State Supplement. Pt sees Tami Meade MD for primary care. Pt lives in [place], alone, independently. 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 Pt does drive her own vehicle and is independent at baseline with ADL's. Pt had home health services 11 years ago after her amputation but does not remember which company. Pt has never been to SNF. Pt does not have LTC insurance or VA benefits. Pt has DPOA/Advance Directive paperwork completed, SW requested a copy when possible. Pt confirmed her son is coming to transport her home today. Pt denies any other needs. No other discharge needs identified. Plan: Per pt is medically ready for discharge. Pt confirmed her son is coming to transport her home today. Pt denies any other needs. No other discharge needs identified. EDDIE Villa Addendum: 05/08/16 at 1059 by AGA ZAMORA Amended: Links added.
--- NOTE | 2016-05-08 10:57 | PCM.PNSURG ---
Subjective Date of Service: May 08, 2016 Visit Information: Reason for Visit Gallbladder Pain Lap Diana with IOC 05/07/2016 Post-Op Day # 1 Date of Admission: Hospital Day # 2 Subjective: Feeling better Objective Vital Sign- Last 8 Hours Date Time Temp Pulse Resp B/P Pulse Ox O2 Delivery O2 Flow Rate FiO2 05/08/16 09:29 37.1 99 16 138/89 99 Room Air 05/08/16 05:21 37.2 109 16 145/94 100 Room Air Intake and Output- Last 8 Hour 05/08/16 Cumulative From/Thru 07:00 05/07/16 17:30 - 05/07/16 21:43 Intake Total 750 ml Output Total 10 ml Balance 740 ml IV Total 750 ml Estimated Blood Loss 10 ml Abdomen: Soft SURGICAL WOUND : Wound Location/Description Dressings dry Assessment & Plan Impression Doing well Problems: Plan Discharge Home Asha King MD May 08, 2016 10:57
--- NOTE | 2016-05-08 11:25 | NUR ---
Discharge Note Patient given all discharge instructions and information at this time. Patient IV discontinued intact at this time. Patient will be assisted with getting dressed and will be transported via wheelchair once patient's son arrives.
[2016-05-08 11:31] LABS: BASOPHILS % (AUTO) 0.2 % (0-3); EOSINOPHILS % (AUTO) 0 % (0-5); MONOCYTES % (AUTO) 11.7 % (4-12); Mean Corpuscular Hemoglobin 29.9 pg (27.0-35.0); Mean Corpuscular Volume 91.3 fL (81-100); NEUTROPHILS % (AUTO) 71.1 % (40-74); Platelet Count 244 bil/L (150-400)
--- NOTE | 2016-05-10 08:25 | PCM.DC.SUR ---
Discharge Summary Date of Service: Date of Hospital Admission: 05/07/2016 Date of Operation(s): 05/07/2016 Date of Discharge: May 08, 2016 at 12:33 Diagnosis at Time of Discharge Primary diagnosis: Acute calculus cholecystitis Other diagnoses: Allergies Asthma, mild intermittent COPD GERD Irritable bowel disease Osteoporosis Right arm fracture Hypothyroidism Phantom limb pain Situational anxiety Chronic pain syndrome Hypertension Former cigarette smoker Problems: Operation Laparoscopic cholecystectomy with intraoperative cholangiogram Brief History and Physical: The patient is a 60-year-old female with a three-day history of right upper quadrant pain radiating into her back. She presented to the emergency department. An ultrasound demonstrated gallstones but no evidence of acute cholecystitis, but she did have elevated liver function tests with an AST of 443, an ALT at 451, and an alkaline phosphatase of 173. Her lipase was 32. Her bilirubin was 1.5. She had persisting pain and was seen in the office by Dr. Lenard Brady where he noted right upper quadrant tenderness. Consultants: None Hospital Course: The patient was admitted and underwent the above-mentioned operation without complication. She was stable for discharge the following morning. Pathology: Pending Disposition: The patient was discharged to home on her first postsurgical day. Follow-up Plan: She will follow-up in the office with Nia Verma PA-C in 3 weeks. ([[id number]]) 5 MCG PO DAILY (Reported) Albuterol Neb Soln (Albuterol Neb Soln) 0.63 Mg/3 Ml Vial.neb Unknown Dose INHALATION Q4H PRN PRN For Wheezing (Reported) Calcium Crb&Cit/D3/Min34/Elsa (Citracal + Bone Density Tablet) 1 Each Tablet 1 EACH PO (Reported) Diphenoxylate/Atropine 2.5-0.025 mg (Lomotil 2.5-0.025 mg) 1 Each Tablet 1 TABLET PO DAILY PRN PRN For Diarrhea or Loose Stool (Reported) Esomeprazole Magnesium (Nexium) 40 Mg Capsule.dr 40 MG PO BID (Reported) Fexofenadine (Maria Eugenia Allergy) 180 Mg Tablet 180 MG PO DAILY PRN PRN ALLERGIES ( Reported) Levothyroxine (Levoxyl) 112 Mcg Tablet 112 MCG PO DAILY (Reported) Metoprolol Tartrate (Metoprolol Tartrate) 25 Mg Tablet 12.5 MG PO HS (Reported) Metoprolol Tartrate (Metoprolol Tartrate) 25 Mg Tablet 25 MG PO MORNING ( Reported) Minocycline (Minocycline) 100 Mg Capsule 100 MG PO DAILY (Reported) Montelukast (Singulair) 10 Mg Tablet 10 MG PO HS (Reported) Oxycodone ER (Oxycontin) 10 Mg Tab.er.12h 10 MG PO 5XD PRN PRN For Pain ( Reported) Ranitidine (Ranitidine) 300 Mg Tablet 300 MG PO BID (Reported) Tizanidine (Tizanidine) 4 Mg Tablet 4 MG PO TID (Reported) Triamterene/HCTZ 37.5-25 mg (Triamterene/HCTZ 37.5-25 mg) 1 Each Capsule 1 CAPSULE PO DAILY (Reported) Zolpidem (Zolpidem) 10 Mg Tablet 10 MG PO HS PRN PRN For Insomnia (Reported) oxyCODONE-Acetaminophen 10-325 mg (oxyCODONE-Acetaminophen 10-325 mg) 1 Each Tablet 2 TABLET PO Q4H PRN PRN For Pain (Reported) copies to: Rafaela Meade MD, Fred H PA-C May 10, 2016 08:25
--- NOTE | 2016-05-10 15:17 | PATH ---
SURGICAL PATHOLOGY Attending Physician:Ju Sam CASE STATUS: Signed Out PATIENT NAME: ANDREINA LINDSEY PID: [id number] : 1955 DATE COLLECTED:05/07/2016 00:00 SPECIMEN: Gallbladder CLINICAL HISTORY: GALLBLADDER PAIN, CHOLECYSTITIS 1). GALLBLADDER FINAL DIAGNOSIS: 1.GALLBLADDER: CHRONIC CHOLECYSTITIS WITH CHOLELITHIASIS. NO EVIDENCE OF MALIGNANCY. ICD10 CODE 80.6 GROSS DESCRIPTION: The specimen is received in formalin, labeled with the patient's name, sublabeled as GB + contents and consists of an intact gallbladder (length-9.4 cm, diameter-3.3 cm) with a patent cystic duct. No lymph nodes are identified. The serosa is green smooth and shiny. The lumen is partially constricted. The proximal half of the lumen contains dark green viscous bile and multiple pale yellow solid firm bosselated round calculi (4.5 by 3.3 x 0.1 cm in aggregate, ranging 0.1-0.2 cm) with yellow centers. The distal half of the lumen contains dark green viscous bile. The mucosa is green and velvety. The wall is up to 0.2 cm thick. No nodules, masses or lesions are identified. Section code: (A) gallbladder, outside medical sales representative. 05/08/16 JM MICRO DESCRIPTION: See diagnosis. ICD-9 CODES: CPT CODES: 1: 11781 Electronically Signed Out Azael Forrest MD [facility] [address], [place] [address] Technical component performed at [facility], [facility] [address], [place], [address]
== END 2016-05-08 12:33 | disposition home or self-care (01) ==
LOC: SAS 16:56 → OSC 21:06 → SAS 05-08 12:33
PROVIDERS: ATTEND Surgery
PROC: BF101ZZ Fluoroscopy of Bile Ducts using Low Osmolar Contrast (ICD-10-PCS; 2016-05-07)
PROC: 0FT44ZZ Resection of Gallbladder, Percutaneous Endoscopic Approach (ICD-10-PCS; principal; 2016-05-07 17:30)
DX: K80.00 Calculus of gallbladder with acute cholecystitis without obstruction (principal); Z89.612 Acquired absence of left leg above knee; Z79.899 Other long term (current) drug therapy; G54.6 Phantom limb syndrome with pain; J45.20 Mild intermittent asthma, uncomplicated; J44.9 Chronic obstructive pulmonary disease, unspecified; K21.9 Gastro-esophageal reflux disease without esophagitis; K58.9 Irritable bowel syndrome, unspecified; E03.9 Hypothyroidism, unspecified; Z87.891 Personal history of nicotine dependence; I10 Essential (primary) hypertension; M81.0 Age-related osteoporosis without current pathological fracture; F41.8 Other specified anxiety disorders; G89.4 Chronic pain syndrome
CPT/HCPCS: 36415; 47563; 74300; 80053; 83690; 85025; 88304; J1100; J1170; J2250; J2405; J2710; J2765; J3010; J7120; Q9967

== ENCOUNTER 2016-09-03 16:40 | Emergency (ER) | payer MEDICARE, OTHER ==
[~2016-09-03 16:40] MED LIST changes: +ALBU0.63 INHALATION; -AMB10 PO; -BANO TOP; -CA C1TAB88 PO; +CALC-682 PO; -CITRACEL PO; -CMBV14.7IN IH; +DIPH1TAB PO; +ESOM40CA41 PO; -FEXO180T PO; +FEXO180T85 PO; -HYDR-4003 PO; -LOM PO; +METO25TA6 PO; +MINO100C3 PO; +MONT10TA20 PO; -NEX40C PO; -OXC10TCR PO; -OXYC-176 PO; +OXYC-466 PO; +OXYC10TA69 PO; -RANI-5 PO; +RANI300T4 PO; -SIN10 PO; +TIZA4TAB4 PO; -TIZA4TABA PO; -TOPR25T PO; -TRIA TP; -TRIA1CAP PO; +TRIA1CAP5 PO; +TRIIODO-L-THYRONINE PO; +ZOLP10TA5 PO; -[UNRECOGNIZED DRUG - CODE] PO
[2016-09-03 17:00] VITALS: BP 137/96; PULSE 82; RESP 16; O2SAT 100
--- NOTE | 2016-09-03 17:53 | ED.REPORT ---
HPI-Trauma Minor / Fall Date of Service Sep 03, 2016 ED Provider: Jordin Bro DO 60 y/o female in a wheelchair with a hx of HTN and arthritis presents to the ED complaining of left thumb pain, onset just prior to arrival. She also complains of right knee pain. The pt's foot got stuck in her wheelchair and she fell forward, injuring herself. She states the pain is specifically at the base of her thumb and radiates to her index finger. She is on chronic pain medications. Nursing Notes Stated Complaint: GL FALL Chief Complaint: Extremity Trauma Nursing Notes Reviewed: Yes Allergies: Coded Allergies: Calcitonin,Likely,Synthetic (Verified Allergy, Unknown, "CAN'T BREATHE", ) Cephalexin Monohydrate (Verified Allergy, Unknown, "CAN'T BREATHE", ) NSAIDS (Non-Steroidal Anti-Inflamma (Verified Allergy, Unknown, " IRRITATES STOMACH", 05/07/16) Sulfa (Sulfonamide Antibiotics) (Verified Allergy, Unknown, THROAT AND MOUTH ULCERS, 05/07/16) TAPE (Verified Allergy, Unknown, BLISTERS, 05/07/16) alendronate sodium (Verified Allergy, Unknown, "SHREDS STOMACH", 05/07/16) amoxicillin (Verified Allergy, Unknown, "CAN'T BREATHE", 05/07/16) cephalexin (Unverified Allergy, Unknown, "CAN'T BREATHE", 05/07/16) ciprofloxacin (Verified Allergy, Unknown, LYMPHEDEMA, 05/07/16) dicyclomine (Verified Allergy, Unknown, RASH HIVES, 05/07/16) erythromycin base (Verified Allergy, Unknown, "CAN'T BREATHE", 05/07/16) gatifloxacin (Verified Allergy, Unknown, THROAT AND MOUTH ULCERS, 05/07/16) methadone (Verified Allergy, Unknown, AGGRAVATES SWELLING, SWEATS, HEART PROBS, 05/07/16) pseudoephedrine (Verified Allergy, Unknown, HTN, 05/07/16) raloxifene (Verified Allergy, Unknown, "REDUCED EYE SIGHT", 05/07/16) valdecoxib (Verified Allergy, Unknown, THROAT AND MOUTH ULCERS, 05/07/16) Uncoded Allergies: DONATAL (Allergy, Unknown, "CAN'T BREATHE", 05/07/16) LACTOSE INTOLERANT, CORN, PINAPPLE, NO RAW VEGTABLES (Allergy, Unknown, 07/01) METALS (Allergy, Unknown, 11/08/13) MULTIPLE SEE CHART PER OR (Allergy, Unknown, 07/02/03) Scheduled ([Glyxhic-[id number]]) 5 MCG PO DAILY Esomeprazole Magnesium (Nexium) 40 Mg Capsule.dr 40 MG PO BID Levothyroxine (Levoxyl) 112 Mcg Tablet 112 MCG PO DAILY Metoprolol Tartrate (Metoprolol Tartrate) 25 Mg Tablet 12.5 MG PO HS Metoprolol Tartrate (Metoprolol Tartrate) 25 Mg Tablet 25 MG PO MORNING Minocycline (Minocycline) 100 Mg Capsule 100 MG PO DAILY Montelukast (Singulair) 10 Mg Tablet 10 MG PO HS Ranitidine (Ranitidine) 300 Mg Tablet 300 MG PO BID Tizanidine (Tizanidine) 4 Mg Tablet 4 MG PO TID Triamterene/HCTZ 37.5-25 mg (Triamterene/HCTZ 37.5-25 mg) 1 Each Capsule 1 CAPSULE PO DAILY Scheduled PRN Albuterol Neb Soln (Albuterol Neb Soln) 0.63 Mg/3 Ml Vial.neb Unknown Dose INHALATION Q4H PRN PRN For Wheezing Diphenoxylate/Atropine 2.5-0.025 mg (Lomotil 2.5-0.025 mg) 1 Each Tablet 1 TABLET PO DAILY PRN PRN For Diarrhea or Loose Stool Fexofenadine (Maria Eugenia Allergy) 180 Mg Tablet 180 MG PO DAILY PRN PRN ALLERGIES Oxycodone ER (Oxycontin) 10 Mg Tab.er.12h 10 MG PO 5XD PRN PRN For Pain Zolpidem (Zolpidem) 10 Mg Tablet 10 MG PO HS PRN PRN For Insomnia oxyCODONE-Acetaminophen 10-325 mg (oxyCODONE-Acetaminophen 10-325 mg) 1 Each Tablet 2 TABLET PO Q4H PRN PRN For Pain Miscellaneous Medications Calcium Crb&Cit/D3/Min34/Elsa (Citracal + Bone Density Tablet) 1 Each Tablet 1 EACH PO General Time Seen by MD: 17:50 Chief Complaint Fall (from wheelchair) Hx Obtained From: Patient Arrived By: Walk-in Onset Occurred: Just prior to arrival Symptom Duration: Since onset Caused by: Fall on ground (fell from wheelchair) Location: Hand left Knee right Quality: Painful Severity: Current: Moderate Severity: Maximum: Moderate Recent Healthcare: No recent doctor visit Similar Sx Previous: No Past Medical History Past Medical History Reports: Asthma, Hypertension Reports: Thyroid disease Smoking History Unknown if Ever Smoker Social History Other Social History: Good social support Ambulatory Status Wheelchair Review of Systems Musculoskeletal: Reports: Extremity pain (left thumb), Joint pain (right knee) Complete sys rev & neg: except as marked. Physical Exam Initial Vital Signs Vital Signs (First) Date Time Temp Pulse Resp B/P Pulse Ox O2 Delivery O2 Flow Rate FiO2 09/03/16 17:00 36.1 82 16 137/96 100 Room Air Initial VS: Reviewed Head / Eyes: Atraumatic, Normocephalic Respiratory: Breath sounds normal, Clear to auscultation, No respiratory distress Cardiovascular: Regular rate & rhythm, Heart sounds normal, Intact distal pulses Skin: Warm, Dry, No cyanosis Neurologic: Alert, Oriented, Nonfocal General/Constitutional: Awake, Alert, Cooperative Neck: Atraumatic, Supple, Full range of motion Wrist / Hand: Atraumatic, No erythema, No deformity, Neurologic intact, Vascular intact Tenderness of left thumb PIP and DIP joints. Pulses and sensation intact. Slight swelling and bruising in the left hand compared to the right. Pain with resisted extension of thumb Mild pain with resisted flexion of the thumb Tendons appear intact. Lower Extremity / Pelvis / MS: Full range of motion Tenderness and small bruising over the tibial tuberosity and inferior patella on the right knee. Interpretation & Diagnostics X-Ray Interpretation Xray Interpretation: IMPRESSION: 1. No definite fracture or dislocation. Dictated by: Adrián Govea M.D. on 09/03/2016 at 18:40 Approved by: Adrián Govea M.D. on 09/03/2016 at 18:41 X-Ray Ordered: Hand left Interpretation / Wet Read by: Interpret - Radiologist Xray Interpretation: IMPRESSION: 1. No fracture or dislocation. Dictated by: Adrián Govea M.D. on 09/03/2016 at 18:42 Approved by: Adrián Govea M.D. on 09/03/2016 at 18:52 X-Ray Ordered: Knee right Interpretation / Wet Read by: Interpret - Radiologist Re-Eval/Medical Decision Re-Evaluation/Progress : Time of Eval: 20:19 Re-Evaluation/Progress Note: Rechecked pt. Discussed imaging results, diagnosis and plan to discharge. Pt understands and agrees with the plan. F/U instructions and RTER warning given. All questions addressed. Counseled Regarding: Diagnosis, Need for follow-up, When/why to return to ED Discharge & Departure Impression: Primary Impression: Fall from ground level Additional Impressions: Pain of left thumb Right knee pain Chronicity: acute Qualified Code: M25.561 - Pain in right knee Sprain of right thumb Encounter type: initial encounter Sprain of finger site: unspecified site Qualified Code: S63.601A - Unspecified sprain of right thumb, initial encounter Disposition: Home Discharge Condition All VS Reviewed: Yes Condition: Stable Patient Instructions: Finger Sprain (ED) Additional Instructions: Thank you for entrusting us with your care today. Your X-ray results are reassuring. There are no fractures. Keep the applied wrist brace on for a few days. Take the pain medication as prescribed. Follow up with orthopedist for further evaluation if pain not improving by next week. Follow up with your primary care provider or return to the emergency department in case of new or worsening symptoms Referrals: Rafaela Meade MD (PCP) Ricky Mckeon MDibe Attestation Portions of this note were transcribed by Adithya Torres. I, , personally performed the history, physical exam and medical decision- making;I reviewed and confirmed the accuracy of the information in the transcribed note. Signed by Carol Ann Winters. 09/04/16 00:17 copies to: Rafaela Meade MD, Gary R DO Sep 03, 2016 17:53 Adithya Torres Sep 03, 2016 18:46
[2016-09-03] MEDS ORDERED: HYDROcodone-APAP 10-325 mg PO ONE (17:55)
--- NOTE | 2016-09-03 18:42 | DRSVH ---
PROCEDURE: X-RAY LEFT HAND, MINIMUM THREE VIEWS ([id number]) INDICATIONS: hand and wrist pain TECHNIQUE: 4 views of the hand(s) acquired. COMPARISON: None. FINDINGS: Bones: No definite fractures or dislocations. Carpal bones are normally aligned. No suspicious bon y lesions. Soft tissues: No suspicious soft tissue calcifications. IMPRESSION: 1. No definite fracture or dislocation. Dictated by: Adrián Govea M.D. on 09/03/2016 at 18:40 Approved by: Adrián Govea M.D. on 09/03/2016 at 18:41
--- NOTE | 2016-09-03 18:53 | DRSVH ---
PROCEDURE: X-RAY RIGHT KNEE, THREE VIEWS ([id number]) INDICATIONS: Knee pain TECHNIQUE: 3 views of the knee were acquired. COMPARISON: None. FINDINGS: Bones: No fractures or dislocations. There is mild osteophytosis. No suspicious bony lesions. Soft tissues: No joint effusion. No suspicious soft tissue calcifications. IMPRESSION: 1. No fracture or dislocation. Dictated by: Adrián Govea M.D. on 09/03/2016 at 18:42 Approved by: Adrián Govea M.D. on 09/03/2016 at 18:52
[2016-09-03] MEDS ORDERED: oxyCODONE-Acetamin 10-325 mg Tablet PO ONE (19:30)
[2016-09-03] MEDS ORDERED: oxyCODONE ER 20 mg ER12 Tablet PO ONE (19:30)
[2016-09-03] MEDS ORDERED: oxyCODONE ER 10 mg ER12 Tablet PO ONE (19:35)
[2016-09-03 20:30] VITALS: BP 151/87; PULSE 74; RESP 16; O2SAT 96
== END 2016-09-03 20:31 | disposition home or self-care (01) ==
LOC: EDUNIT# 16:40 → EDSEX 16:40 → EDBD 16:40 → SED 16:40
DX: S63.682A Other sprain of left thumb, initial encounter (principal); M25.561 Pain in right knee; W05.0XXA Fall from non-moving wheelchair, initial encounter; Y92.89 Other specified places as the place of occurrence of the external cause; Y93.89 Activity, other specified; Y99.8 Other external cause status; I10 Essential (primary) hypertension; E07.9 Disorder of thyroid, unspecified; M19.90 Unspecified osteoarthritis, unspecified site; J45.909 Unspecified asthma, uncomplicated; Z99.3 Dependence on wheelchair; Z88.1 Allergy status to other antibiotic agents; Z88.2 Allergy status to sulfonamides; Z88.6 Allergy status to analgesic agent; Z88.8 Allergy status to other drugs, medicaments and biological substances